=== PATIENT | female | born 1940 | race African-American/Black ===

== ENCOUNTER → 2016-07-08 | Outpatient (CLI) | payer MEDICARE, OTHER ==
[2016-07-08 11:55] LABS: HEMATOCRIT 40.7 % (36.0-47.0); HEMOGLOBIN 13.6 g/dL (12.0-15.5); HGB HCT DIFFERENCE 0.1; MEAN CORPUSCULAR HEMOGLOBIN 29.8 pg (27.0-33.4); MEAN CORPUSCULAR HGB CONC 33.4 g/dL (32.0-36.0); MEAN CORPUSCULAR VOLUME 89 fl (80-97); RED BLOOD COUNT 4.55 10^6/uL (3.72-5.28); RED CELL DISTRIBUTION WIDTH 13.5 % (11.5-14.0)
[2016-07-08 12:22] LABS: ALANINE AMINOTRANSFERASE 24 U/L (9-52); ALBUMIN 4.1 g/dL (3.5-5.0); ALKALINE PHOSPHATASE 74 U/L (38-126); ANION GAP 12 (5-19); ASPARTATE AMINO TRANSFERASE 20 U/L (14-36); BILIRUBIN,DIRECT 0.3 mg/dL (0.0-0.4); BILIRUBIN,TOTAL 0.6 mg/dL (0.2-1.3); BLOOD UREA NITROGEN 8 mg/dL (7-20); CALCIUM 9.4 mg/dL (8.4-10.2); CARBON DIOXIDE 34 mmol/L (22-30); CHLORIDE 97 mmol/L (98-107); CREATININE RESULT 0.55 mg/dL (0.52-1.25); GLUCOSE 165 mg/dL (75-110); POTASSIUM 3.3 mmol/L (3.6-5.0)
== END ==
LOC: OD 10:38
PROVIDERS: ATTEND Surgery
DX: K63.5 Polyp of colon (principal)
CPT/HCPCS: 36415; 80053; 85027

== ENCOUNTER → 2016-07-16 | Outpatient (CLI) | payer MEDICARE, OTHER | LOC: RAD 12:36 | PROVIDERS: ATTEND Surgery | DX: K63.5 Polyp of colon (principal) | CPT/HCPCS: 71260; 74177 ==

== ENCOUNTER → 2016-12-03 | Outpatient (CLI) | payer MEDICARE, OTHER ==
[2016-12-03 15:55] LABS: ANION GAP 13 (5-19); BLOOD UREA NITROGEN 24 mg/dL (7-20); CALCIUM 10.3 mg/dL (8.4-10.2); CARBON DIOXIDE 29 mmol/L (22-30); CHLORIDE 100 mmol/L (98-107); CREATININE RESULT 0.91 mg/dL (0.52-1.25); GLUCOSE 121 mg/dL (75-110); POTASSIUM 5.2 mmol/L (3.6-5.0); SODIUM 142.2 mmol/L (137-145)
== END ==
LOC: OD 14:15
PROVIDERS: ATTEND Internal Medicine
DX: R94.31 Abnormal electrocardiogram [ECG] [EKG] (principal); R06.02 Shortness of breath; J45.909 Unspecified asthma, uncomplicated; R09.02 Hypoxemia; I27.2 Other secondary pulmonary hypertension; R60.0 Localized edema; Z79.899 Other long term (current) drug therapy
CPT/HCPCS: 36415; 80048

== ENCOUNTER → 2016-12-17 | Outpatient (CLI) | payer MEDICARE, OTHER ==
[2016-12-17 11:06] LABS: ABSOLUTE EOSINOPHILS # (AUTO) 0.3 10^3/uL (0.0-0.6); ABSOLUTE LYMPHOCYTES (AUTO) 1.5 10^3/uL (0.5-4.7); ABSOLUTE MONOCYTES (AUTO) 0.5 10^3/uL (0.1-1.4); ABSOLUTE NEUT (AUTO) 2.3 10^3/uL (1.7-8.2); EOSINOPHILS % (AUTO) 6.8 % (0-6); HEMATOCRIT 38.7 % (36.0-47.0); HEMOGLOBIN 13.2 g/dL (12.0-15.5); HGB HCT DIFFERENCE 0.9; MEAN CORPUSCULAR HEMOGLOBIN 29.5 pg (27.0-33.4); MEAN CORPUSCULAR HGB CONC 34.1 g/dL (32.0-36.0); MEAN CORPUSCULAR VOLUME 87 fl (80-97); MONOCYTES % (AUTO) 10.3 % (3-13); RED BLOOD COUNT 4.47 10^6/uL (3.72-5.28); RED CELL DISTRIBUTION WIDTH 13.9 % (11.5-14.0); SEGMENTED NEUTROPHILS % (AUTO) 49.9 % (42-78); WHITE BLOOD COUNT 4.6 10^3/uL (4.0-10.5)
[2016-12-17 11:30] LABS: ALANINE AMINOTRANSFERASE 23 U/L (9-52); ALBUMIN 4.1 g/dL (3.5-5.0); ALKALINE PHOSPHATASE 74 U/L (38-126); ANION GAP 10 (5-19); ASPARTATE AMINO TRANSFERASE 24 U/L (14-36); BILIRUBIN,DIRECT 0.4 mg/dL (0.0-0.4); BILIRUBIN,TOTAL 0.4 mg/dL (0.2-1.3); BLOOD UREA NITROGEN 13 mg/dL (7-20); CARBON DIOXIDE 33 mmol/L (22-30); CHLORIDE 98 mmol/L (98-107); CREATININE RESULT 0.63 mg/dL (0.52-1.25); GLUCOSE 184 mg/dL (75-110); POTASSIUM 4.1 mmol/L (3.6-5.0); SODIUM 141.1 mmol/L (137-145); TOTAL PROTEIN 7.1 g/dL (6.3-8.2)
== END ==
LOC: OD 10:33
PROVIDERS: ATTEND Surgery
DX: E11.9 Type 2 diabetes mellitus without complications (principal); K63.5 Polyp of colon
CPT/HCPCS: 36415; 80053; 83036; 85025

== ENCOUNTER → 2017-04-03 | Outpatient (CLI) | payer MEDICARE, OTHER ==
--- NOTE | 2017-04-03 14:57 | RADIOLOGY REPORT (SQ) ---
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 NUMBER OF VIEWS: Two views. TECHNIQUE: AP pelvis and additional frog-leg view of the right hip. LIMITATIONS: None. FINDINGS: MINERALIZATION: Normal. RIGHT HIP: No fracture or dislocation. No worrisome bone lesions. LEFT HIP: No fracture or dislocation. No worrisome bone lesions. PUBIS AND ISCHIUM: No fracture. PELVIS: No fracture. SACRUM: No fracture or dislocation. No worrisome bone lesions. LOWER LUMBAR SPINE: No fracture or dislocation. No worrisome bone lesions. No significant disc disea se. SOFT TISSUES: No findings. OTHER: No other significant finding. IMPRESSION: NEGATIVE STUDY OF THE RIGHT HIP. NO RADIOGRAPHIC EVIDENCE OF ACUTE INJURY. TECHNICAL DOCUMENTATION: JOB ID: [id number] [employer]- All Rights Reserved
--- NOTE | 2017-04-03 14:59 | RADIOLOGY REPORT (SQ) ---
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 NUMBER OF VIEWS: Five views including obliques. TECHNIQUE: AP, lateral, oblique, and sacral radiographic images acquired of the lumbar spine. LIMITATIONS: None. FINDINGS: MINERALIZATION: Osteopenia. SEGMENTATION: Normal. No transitional anatomy. ALIGNMENT: Mild scoliosis. VERTEBRAE: Maintained height. No fracture or worrisome bone lesion. DISCS: Mild disc narrowing at L4-5. Marginal osteophytes. POSTERIOR ELEMENTS: Hypertrophic facet changes L3-S1. HARDWARE: None in the spine. PARASPINAL SOFT TISSUES: Normal. PELVIS: Intact as visualized. No fractures or worrisome bone lesions. SI joints intact. OTHER: No other significant finding. IMPRESSION: Mild degenerative disc changes. Spondylosis. Facet arthropathy. TECHNICAL DOCUMENTATION: JOB ID: [id number] [employer]- All Rights Reserved
== END ==
LOC: RAD 13:40
PROVIDERS: ATTEND Physician Assistant
DX: M54.31 Sciatica, right side (principal); M47.896 Other spondylosis, lumbar region
CPT/HCPCS: 72110

== ENCOUNTER → 2017-05-12 | Outpatient (CLI) | payer MEDICARE, OTHER ==
--- NOTE | 2017-05-12 14:08 | WOMENS IMAGING REPORT ---
EXAM DESCRIPTION: BONE DENSITY HIP/SPINE COMPLETED DATE/TIME: 05/12/2017 1:31 pm REASON FOR STUDY: SCREENING MAMMO/ OSTEOPOROSIS Z12.31 ENCNTR SCREEN MAMMOGRAM FOR MALIGNANT NEOPLA SM OF LORE M81.0 AGE-RELATED OSTEOPOROSIS W/O CURRENT PATHOLOGICAL FRAC COMPARISON: 10/30/2010 TECHNIQUE: Dual-Energy X-ray Absorptiometry (DEXA) of the AP Spine and Hip. LIMITATIONS: None. FINDINGS: LUMBAR SPINE: The bone mineral density (BMD) measured from L1-L4 in the AP projection correlates with a T-score of 1.5, which is normal as defined by the World Health Organization. HIP: The bone mineral density (BMD) measured in the right hip correlates with a T-score of 0.1, which is n ormal as defined by the World Health Organization. IMPRESSION: 1. LUMBAR SPINE: NORMAL. 2. HIP: NORMAL. COMMENT: The World Health Organization defines low BMD as follows: T-score: Normal: Greater than -1.0 Osteopenia: Between -1.0 and -2.5 Osteoporosis: Less than -2.5 without fractures Established osteoporosis: Less than -2.5 with fractures In general, you may wish to consider: Diagnosis Treatment Follow-up DEXA Normal BMD Prevention 2-3 years Osteopenia Prevention/Therapy 1-2 years Osteoporosis Therapy Yearly TECHNICAL DOCUMENTATION: JOB ID: [id number]- All Rights Reserved
--- NOTE | 2017-05-12 14:22 | WOMENS IMAGING REPORT ---
EXAM DESCRIPTION: 3D SCREENING MAMMO BILAT COMPLETED DATE/TIME: 05/12/2017 1:31 pm REASON FOR STUDY: SCREENING MAMMO/ OSTEOPOROSIS Z12.31 ENCNTR SCREEN MAMMOGRAM FOR MALIGNANT NEOPLA SM OF LORE M81.0 AGE-RELATED OSTEOPOROSIS W/O CURRENT PATHOLOGICAL FRAC COMPARISON: 2010, 2013 TECHNIQUE: Standard craniocaudal and mediolateral oblique views of each breast recorded using digita l acquisition and breast tomosynthesis. LIMITATIONS: None. FINDINGS: Findings present which are benign by mammographic criteria. No suspicious masses, calcifi cations or architectural distortion. Pertinent benign findings: Asymmetry right breast. Read with the assistance of CAD. .[facility] - R2 Cenova Version 1.3 .[facility] - R2 Cenova Version 1.3 .[facility] - R2 Cenova Version 2.4 .[facility] [place]2 Cenova Version 2.4 .[facility] - R2 Ct Manager Version 9.2 Benign mammographic findings may include one or more of the following: Smooth masses, popcorn/rim/co arse calcifications, asymmetries, post-procedure changes, and lesions with long-standing stability. IMPRESSION: BENIGN MAMMOGRAPHIC FINDINGS. BIRADS 2 BREAST DENSITY: a. The breasts are almost entirely fatty. BIRAD: 2 BENIGN FINDING(S) RECOMMENDATION: RECOMMENDATION: ROUTINE SCREENING COMMENT: The patient has been notified of the results by letter per SA requirements. Additional no tification policies are in place for contacting patient with suspicious or incomplete findings. Quality ID #[id number]: The [employer] recommends an annual screening mammogram for women aged 40 years or over. This facility utilizes a reminder system to ensure that all patients receive reminder letters, and/or direct phone calls for appointments. This includes reminders for routine scr eening mammograms, diagnostic mammograms, or other Breast Imaging Interventions when appropriate. Th is patient will be placed in the appropriate reminder system. The [employer] (ACR) has developed recommendations for screening MRI of the breast s in certain patient populations, to be used in conjunction with mammography. Breast MRI surveillanc e may be appropriate for women with more than 20% lifetime risk of developing breast cancer as deter mined by genetic testing, significant family history of the disease, or history of mantle radiation f or Hodgkins Disease. ACR Practice Guidelines 2008. DBT Technology DBT is a type of tomographic mammography. With conventional mammography, overlapping breast tissue ma y make lesions difficult to detect, even with good compression. DBT uses an x-ray tube that rotates a round the breast, taking images at different angles. These images are then combined to create thin sl ices of the breast that the radiologist can view as a 3D reconstruction. The [employer] [facility] [employer] [facility] can perform full-field digital mammograms (2D imaging); or DBT (3D imaging); or both, in a combination mode that quickly performs both the mammogram and the tomosynthesis scan while the breast is still compressed. PQRS 6045F: Fluoroscopic imaging is not utilized for breast tomosynthesis. TECHNICAL DOCUMENTATION: FINDING NUMBER: (1) ASSESSMENT: (1) JOB ID: [id number] [employer]- All Rights Reserved
== END ==
LOC: WI 12:55
PROVIDERS: ATTEND Internal Medicine
DX: Z12.31 Encounter for screening mammogram for malignant neoplasm of breast (principal); M81.0 Age-related osteoporosis without current pathological fracture
CPT/HCPCS: 77063; 77067; 77080

== ENCOUNTER 2017-05-25 09:54 | Emergency (ER) | payer MEDICARE, OTHER ==
[2017-05-25 10:05] VITALS: BP 181/90
[2017-05-25] MEDS ORDERED: FAMOTIDINE 20 MG TABLET PO ONE (10:26)
[2017-05-25] MEDS ORDERED: DIPHENHYDRAMINE HCL 50 MG CAPSULE PO ONE (10:26)
--- NOTE | 2017-05-25 10:33 | ER Document Report ---
ED General - General Chief Complaint: Itching Stated Complaint: ITCH ALL OVER Time Seen by Provider: 05/25/17 10:14 Mode of Arrival: Ambulatory Information source: Patient Notes: 76-year-old female presents with complaints of generalized itching all throughout her body. Patient is a diabetic denies any liver issues presents with complaints of generalized rash that she did not know what to take for. Patient denies any fevers or chills denies any difficulty breathing patient cannot think of any specific cause of the rash Patient notes she took a shower yesterday and the rash improved but she is still itching intermittently TRAVEL OUTSIDE OF THE [place] IN LAST 30 DAYS: No - HPI Onset: Other - 3 days Onset/Duration: Better Quality of pain: No pain Severity: Mild Pain Level: Denies Associated symptoms: Other Exacerbated by: Denies Relieved by: Denies Similar symptoms previously: No Recently seen / treated by doctor: No - Related Data Allergies/Adverse Reactions: No Known Allergies Allergy (Verified 09/08/15 13:24) Past Medical History - Social History Smoking Status: Never Smoker Cigarette use (# per day): No Chew tobacco use (# tins/day): No Smoking Education Provided: No Family History: Reviewed & Not Pertinent - Past Medical History Cardiac Medical History: Reports: Hx Hypertension - CONTROLLED Denies: Hx Heart Attack Pulmonary Medical History: Reports: Hx Asthma Neurological Medical History: Denies: Hx Cerebrovascular Accident, Hx Seizures GI Medical History: Reports: Hx Ulcer - HX OF. Denies: Hx Hepatitis, Hx Hiatal Hernia Infectious Medical History: Denies: Hx Hepatitis Past Surgical History: Reports: Hx Hysterectomy, Hx Tubal Ligation. Denies: Hx Mastectomy, Hx Open Heart Surgery, Hx Pacemaker - Immunizations Hx Diphtheria, Pertussis, Tetanus Vaccination: Yes Review of Systems - Review of Systems Notes: REVIEW OF SYSTEMS: CONSTITUTIONAL : Denies fever, chills, or sweats. Denies recent illness. EENT: Denies eye, ear, throat, or mouth pain or symptoms. Denies nasal or sinus congestion or discharge. Denies throat, tongue, or mouth swelling or difficulty swallowing. CARDIOVASCULAR: Denies chest pain. Denies palpitations or racing or irregular heart beat. Denies ankle edema. RESPIRATORY: Denies cough, cold, or chest congestion. Denies shortness of breath, difficulty breathing, or wheezing. GASTROINTESTINAL: Denies abdominal pain or distention. Denies nausea, vomiting , or diarrhea. Denies blood in vomitus, stools, or per rectum. Denies black, tarry stools. Denies constipation. GENITOURINARY: Denies difficulty urinating, painful urination, burning, frequency, blood in urine, or discharge. FEMALE GENITOURINARY: Denies vaginal bleeding, heavy or abnormal periods, irregular periods. Denies vaginal discharge or odor. MUSCULOSKELETAL: Denies back or neck pain or stiffness. Denies joint pain or swelling. SKIN: generalized rash HEMATOLOGIC : Denies easy bruising or bleeding. LYMPHATIC: Denies swollen, enlarged glands. NEUROLOGICAL: Denies confusion or altered mental status. Denies passing out or loss of consciousness. Denies dizziness or lightheadedness. Denies headache. Denies weakness or paralysis or loss of use of either side. Denies problems with gait or speech. Denies sensory loss, numbness, or tingling. Denies seizures. PSYCHIATRIC: Denies anxiety or stress. Denies depression, suicidal ideation, or homicidal ideation. ALL OTHER SYSTEMS REVIEWED AND NEGATIVE. PHYSICAL EXAMINATION: GENERAL: Well-appearing, well-nourished and in no acute distress. HEAD: Atraumatic, normocephalic. EYES: Pupils equal round and reactive to light, extraocular movements intact, conjunctiva are normal. ENT: Nares patent, oropharynx clear without exudates. Moist mucous membranes. NECK: Normal range of motion, supple without lymphadenopathy LUNGS: Breath sounds clear to auscultation bilaterally and equal. No wheezes rales or rhonchi. HEART: Regular rate and rhythm without murmurs ABDOMEN: Soft, nontender, nondistended abdomen. No guarding, no rebound. No masses appreciated. Female : deferred Musculoskeletal: Normal range of motion, no pitting or edema. No cyanosis. NEUROLOGICAL: Cranial nerves grossly intact. Normal speech, normal gait. Normal sensory, motor exams PSYCH: Normal mood, normal affect. SKIN: Warm, Dry, normal turgor, no rashes or lesions noted. Dictation was performed using [employer] recognition software Physical Exam - Vital signs Vitals: Temp Pulse Resp BP Pulse Ox 98.0 F 98 18 181/90 H 92 05/25/17 10:03 05/25/17 10:03 05/25/17 10:03 05/25/17 10:03 05/25/17 10:03 Course - Re-evaluation Re-evalutation: 05/25/17 10:44 Patient will be placed on Benadryl and Pepcid, she has a history of diabetes and will not use steroids at this time After performing a Medical Screening Examination, I estimate there is LOW risk for AIRWAY COMPROMISE, ANAPHYLAXIS, CELLULITIS, EPIGLOTTIS, or NECROTIZING FASCIITIS, thus I consider the discharge disposition reasonable. Also, there is no evidence or peritonitis, sepsis, or toxicity. I have reevaluated this patient multiple times and no significant life threatening changes are noted. The patient and I have discussed the diagnosis and risks, and we agree with discharging home with close follow-up with the understanding that symptoms and presentations can change. We also discussed returning to the Emergency Department immediately if new or worsening symptoms occur. We have discussed the symptoms which are most concerning (e.g., difficulty breathing or swallowing , fever, changing or worsening pain) that necessitate immediate return. - Vital Signs Vital signs: Temp Pulse Resp BP Pulse Ox 98.0 F 98 18 181/90 H 92 05/25/17 10:03 05/25/17 10:03 05/25/17 10:03 05/25/17 10:03 05/25/17 10:03 Discharge - Discharge Clinical Impression: Allergic reaction Qualifiers: Encounter type: initial encounter Qualified Code(s): T78.40XA - Allergy, unspecified, initial encounter HTN (hypertension) Qualifiers: Hypertension type: essential hypertension Qualified Code(s): I10 - Essential ( primary) hypertension Condition: Stable Disposition: HOME, SELF-CARE Instructions: Acute Allergic Reaction ([facility]) Additional Instructions: Follow up with your physician tomorrow for further care or return to the ED IMMEDIATELY if symptoms worsen or new concerns occur. If you cannot afford to follow up with your primary care physician a list of low cost clinics have been provided at the end of your discharge papers as well. Prescriptions: Diphenhydramine HCl [Benadryl 50 mg Capsule] 1 cap PO Q6 PRN #20 capsule PRN Reason: Famotidine [Pepcid 20 mg Tablet] 20 mg PO DAILY #5 tablet
== END 2017-05-25 10:53 | disposition home or self-care (01) ==
LOC: ER 09:54
DX: T78.40XA Allergy, unspecified, initial encounter (principal); L29.9 Pruritus, unspecified; X58.XXXA Exposure to other specified factors, initial encounter; E11.9 Type 2 diabetes mellitus without complications; I10 Essential (primary) hypertension; J45.909 Unspecified asthma, uncomplicated
CPT/HCPCS: 99282; A9270 ×2

== ENCOUNTER 2017-08-12 13:19 | Emergency (ER) | payer MEDICARE, OTHER ==
--- NOTE | 2017-08-12 13:53 | ER Document Report ---
HPI - HPI Patient complains to provider of: left great toe pain Onset: Other - 3 days Quality of pain: Throbbing Pain Level: 1 Context: 76 yo female with left great toe pain for 3 days, then started getting red and swollen. Diabetic 2. No hx gout. PCP: Dr. Arzate gave her a cream to use on it and she thinks it is better today than yesterday. Associated Symptoms: None Exacerbated by: Movement Relieved by: Other - cream is helping Similar symptoms previously: No Recently seen / treated by doctor: Nae ARZATE below otherwise negative: Yes Systems Reviewed and Negative: Yes All other systems reviewed and negative - REPRODUCTIVE Reproductive: DENIES: : Past Medical History - General Information source: Patient - Social History Smoking Status: Former Smoker Frequency of alcohol use: None Drug Abuse: None Lives with: Family Family History: Reviewed & Not Pertinent - Past Medical History Cardiac Medical History: Reports: Hx Hypertension - CONTROLLED Pulmonary Medical History: Reports: Hx Asthma Renal/ Medical History: Denies: Hx Peritoneal Dialysis GI Medical History: Reports: Hx Ulcer - HX OF Infectious Medical History: Denies: Hx Hepatitis Past Surgical History: Reports: Hx Hysterectomy, Hx Tubal Ligation. Denies: Hx Mastectomy, Hx Open Heart Surgery, Hx Pacemaker - Immunizations Hx Diphtheria, Pertussis, Tetanus Vaccination: Yes Vertical Provider Document - CONSTITUTIONAL Agree With Documented VS: Yes Exam Limitations: No Limitations General Appearance: No Apparent Distress - INFECTION CONTROL TRAVEL OUTSIDE OF THE [place] IN LAST 30 DAYS: No - HEENT HEENT: Normocephalic - NECK Neck: Supple - MUSCULOSKELETAL/EXTREMETIES Musculoskeletal/Extremeties: MAEW Notes: erythematous dorsal mid left great toe over the DIP, increased pain with DIP movement. N/V intact. moist non tender skin between gt and 2nd toe. Inflamed but no paronychia or abscess. Course - Re-evaluation Re-evalutation: 08/12/17 15:12 uric acid is negative, will tx for possible skin infection and inflammation ( possible gout) with keflex and steroid, rec followo up with dr arzate. also advise to continue the cream. 08/12/17 15:13 - Vital Signs Vital signs: Temp Pulse Resp BP Pulse Ox 98.3 F 88 15 180/96 H 91 L 08/12/17 13:24 08/12/17 13:24 08/12/17 13:24 08/12/17 13:24 08/12/17 13:24 Discharge - Discharge Clinical Impression: left great toe inflammation Cellulitis Qualifiers: Site of cellulitis: extremity Site of cellulitis of extremity: toe Laterality: left Qualified Code(s): L03.032 - Cellulitis of left toe Condition: Good Disposition: HOME, SELF-CARE Instructions: Cephalexin ([facility]), Steroid Medication, Cellulitis ([facility]), Gout ([facility] ), Gout Diet ([facility]) Additional Instructions: see dr arzate for follow up on steroids to reduce the inflammation antibiotic for possible skin infection continue the cream that you are using. to er any concerns Prescriptions: Cephalexin Monohydrate [Keflex 500 mg Capsule] 500 mg PO QID #28 capsule Prednisone [Deltasone 10 mg Tablet] 10 mg PO ASDIR PRN #21 tablet PRN Reason: Referrals: ETTA ARZATE MD [Primary Care Provider] - Follow up as needed
--- NOTE | 2017-08-12 14:56 | RADIOLOGY REPORT (SQ) ---
EXAM DESCRIPTION: TOE LEFT COMPLETED DATE/TIME: 08/12/2017 2:19 pm REASON FOR STUDY: pain , swelling, red COMPARISON: None. NUMBER OF VIEWS: Three views. TECHNIQUE: AP, lateral, and oblique images acquired of the left first toe. LIMITATIONS: None. FINDINGS: MINERALIZATION: Normal. BONES: No acute fracture or dislocation. No worrisome bone lesions. JOINTS: No effusions. SOFT TISSUES: No soft tissue swelling. No foreign body. OTHER: No other significant finding. IMPRESSION: NEGATIVE STUDY OF THE LEFT TOE. NO RADIOGRAPHIC EVIDENCE OF ACUTE INJURY. COMMENT: SITE OF TRAUMA/COMPLAINT MARKED/STAMP COMPLETED: No TECHNICAL DOCUMENTATION: JOB ID: [id number] [employer]- All Rights Reserved Reading location - IP/workstation name: [email or web address]
[2017-08-12 15:09] VITALS: BP 183/89
== END 2017-08-12 15:18 | disposition home or self-care (01) ==
LOC: ER 13:19
DX: L03.032 Cellulitis of left toe (principal); M79.675 Pain in left toe(s); E11.9 Type 2 diabetes mellitus without complications; I10 Essential (primary) hypertension; J45.909 Unspecified asthma, uncomplicated; Z87.891 Personal history of nicotine dependence
CPT/HCPCS: 36415; 84550; 99283

== ENCOUNTER 2017-08-21 11:04 | Emergency (ER) | payer MEDICARE, OTHER ==
--- NOTE | 2017-08-21 11:27 | ER Document Report ---
ED Medical Screen (RME) - General Chief Complaint: General Weakness Stated Complaint: DIZZY, WEAK Time Seen by Provider: 08/21/17 11:20 Notes: Patient is a 76-year-old female, past medical history hypertension, NIDDM, hypercholesterolemia, presents with 2 days of feeling off balance, especially when she is walking. Never had this before. Only takes her medications intermittently because "I don't always believe in medications." Denies focal weakness, numbness, tingling or blurry vision. PE: 5/5 strength in all 4 extremities. Sensation intact. I have greeted and performed a rapid initial assessment of this patient. A comprehensive ED assessment and evaluation of the patient, analysis of test results and completion of the medical decision making process will be conducted by additional ED providers. TRAVEL OUTSIDE OF THE [place] IN LAST 30 DAYS: No - Related Data Allergies/Adverse Reactions: No Known Allergies Allergy (Verified 08/12/17 13:19) Past Medical History - Social History Chew tobacco use (# tins/day): No Frequency of alcohol use: Rare Drug Abuse: None - Past Medical History Cardiac Medical History: Reports: Hx Hypertension - CONTROLLED Pulmonary Medical History: Reports: Hx Asthma Renal/ Medical History: Denies: Hx Peritoneal Dialysis GI Medical History: Reports: Hx Ulcer - HX OF. Denies: Hx Hepatitis Infectious Medical History: Denies: Hx Hepatitis Past Surgical History: Reports: Hx Hysterectomy, Hx Tubal Ligation. Denies: Hx Mastectomy, Hx Open Heart Surgery, Hx Pacemaker - Immunizations Hx Diphtheria, Pertussis, Tetanus Vaccination: Yes Physical Exam - Vital signs Vitals: Temp Pulse Resp BP Pulse Ox 97.7 F 85 20 170/81 H 94 08/21/17 11:10 08/21/17 11:10 08/21/17 11:10 08/21/17 11:10 08/21/17 11:10 Course - Vital Signs Vital signs: Temp Pulse Resp BP Pulse Ox 97.7 F 85 20 170/81 H 94 08/21/17 11:10 08/21/17 11:10 08/21/17 11:10 08/21/17 11:10 08/21/17 11:10 Doctor's Discharge - Discharge Referrals: ETTA ARZATE MD [Primary Care Provider] - Follow up as needed
[2017-08-21 12:22] LABS: ABSOLUTE EOSINOPHILS # (AUTO) 0.1 10^3/uL (0.0-0.6); ABSOLUTE LYMPHOCYTES (AUTO) 1.6 10^3/uL (0.5-4.7); ABSOLUTE MONOCYTES (AUTO) 0.4 10^3/uL (0.1-1.4); ABSOLUTE NEUT (AUTO) 3.1 10^3/uL (1.7-8.2); BASOPHILS % (AUTO) 0.8 % (0-2); EOSINOPHILS % (AUTO) 2.2 % (0-6); HEMATOCRIT 43.3 % (36.0-47.0); HEMOGLOBIN 14.5 g/dL (12.0-15.5); MEAN CORPUSCULAR HEMOGLOBIN 29.2 pg (27.0-33.4); MEAN CORPUSCULAR HGB CONC 33.4 g/dL (32.0-36.0); MEAN CORPUSCULAR VOLUME 87 fl (80-97); MONOCYTES % (AUTO) 7.5 % (3-13); PLATELET COUNT 204 10^3/uL (150-450); RED BLOOD COUNT 4.96 10^6/uL (3.72-5.28); RED CELL DISTRIBUTION WIDTH 13.9 % (11.5-14.0); SEGMENTED NEUTROPHILS % (AUTO) 59.5 % (42-78); TOTAL CELLS COUNTED % (AUTO) 100 %; WHITE BLOOD COUNT 5.2 10^3/uL (4.0-10.5)
[2017-08-21 12:27] LABS: PROTHROMBIN TIME 12.6 SEC (11.4-15.4)
--- NOTE | 2017-08-21 12:32 | RADIOLOGY REPORT (SQ) ---
EXAM DESCRIPTION: CHEST SINGLE VIEW COMPLETED DATE/TIME: 08/21/2017 12:23 pm REASON FOR STUDY: new onset ataxia, off-balance COMPARISON: None. NUMBER OF VIEWS: One view. TECHNIQUE: Single frontal radiographic view of the chest acquired. LIMITATIONS: None. FINDINGS: LUNGS AND PLEURA: Trace of fluid in the right major fissure. No significant effusion. No evidence of pneumonia. MEDIASTINUM AND HILAR STRUCTURES: No masses. Contour normal. HEART AND VASCULAR STRUCTURES: Heart normal in size. Normal vasculature. BONES: No acute findings. HARDWARE: None in the chest. OTHER: No other significant finding. IMPRESSION: NO SIGNIFICANT RADIOGRAPHIC FINDING IN THE CHEST. TECHNICAL DOCUMENTATION: JOB ID: [id number] [employer]- All Rights Reserved Reading location - IP/workstation name: [email or web address]
--- NOTE | 2017-08-21 12:38 | RADIOLOGY REPORT (SQ) ---
EXAM DESCRIPTION: CT HEAD WITHOUT COMPLETED DATE/TIME: 08/21/2017 12:21 pm REASON FOR STUDY: new onset ataxia, off-balance COMPARISON: August 2015 TECHNIQUE: Axial images acquired through the brain without intravenous contrast. Images reviewed wi th bone, brain and subdural windows. Additional sagittal and coronal reconstructions were generated. Images stored on PACS. All CT scanners at this facility use dose modulation, iterative reconstruction, and/or weight based d osing when appropriate to reduce radiation dose to as low as reasonably achievable (ALARA). [facility]: Dose Right [facility]: CareDose [facility]: Dose Right [facility]: Teradose 4D [facility]: Smart [employer] RADIATION DOSE: CT Rad equipment meets quality standard of care and radiation dose reduction techniq ues were employed. CTDIvol: 53.2 mGy. DLP: 1044 mGy-cm. mGy. LIMITATIONS: None. FINDINGS: VENTRICLES: Prominent. CEREBRUM: No masses. No hemorrhage. No midline shift. Areas of low density in the white matter mos t likely due to chronic micro-vascular ischemic change. No evidence for acute infarction. CEREBELLUM: No masses. No hemorrhage. No alteration of density. No evidence for acute infarction. EXTRAAXIAL SPACES: Mild age-related involutional change. No fluid collections. No masses. ORBITS AND GLOBE: No intra- or extraconal masses. Normal contour of globe without masses. CALVARIUM: No fracture. PARANASAL SINUSES: No fluid or mucosal thickening. SOFT TISSUES: No mass or hematoma. OTHER: No other significant finding. IMPRESSION: MILD CHRONIC CHANGES OF ATROPHY AND MICROVASCULAR ISCHEMIA. NO ACUTE PROCESS. EVIDENCE OF ACUTE STROKE: No TECHNICAL DOCUMENTATION: JOB ID: [id number] Quality ID # [id number]: Final reports with documentation of one or more dose reduction techniques (e.g., Au tomated exposure control, adjustment of the mA and/or kV according to patient size, use of iterative reconstruction technique) 2010 [employer]- All Rights Reserved Reading location - IP/workstation name: [email or web address]
[2017-08-21 12:46] LABS: ALANINE AMINOTRANSFERASE 23 U/L (9-52); ALBUMIN 4.1 g/dL (3.5-5.0); ALKALINE PHOSPHATASE 79 U/L (38-126); ASPARTATE AMINO TRANSFERASE 21 U/L (14-36); BILIRUBIN,DIRECT 0.3 mg/dL (0.0-0.4); BILIRUBIN,TOTAL 0.6 mg/dL (0.2-1.3); BLOOD UREA NITROGEN 9 mg/dL (7-20); CREATINE KINASE 59 U/L (30-135); GLUCOSE 274 mg/dL (75-110); TOTAL PROTEIN 7.3 g/dL (6.3-8.2)
[2017-08-21] MEDS ORDERED: MECLIZINE HCL 25 MG TABLET PO ONE (12:49)
[2017-08-21 13:09] LABS: ANION GAP 13 (5-19); CARBON DIOXIDE 38 mmol/L (22-30); CHLORIDE 92 mmol/L (98-107); SODIUM 143.3 mmol/L (137-145)
[2017-08-21 13:16] LABS: POTASSIUM 2.8 mmol/L (3.6-5.0)
[2017-08-21] MEDS ORDERED: POTASSIUM CHLORIDE 10 MEQ TABLET.SA PO ONE (13:21)
--- NOTE | 2017-08-21 13:24 | EKG REPORT ---
SEVERITY:- ABNORMAL ECG - SINUS RHYTHM RBBB AND LAFB PROBABLE LEFT VENTRICULAR HYPERTROPHY : Confirmed by: Adan Damon MD 21-Aug-2017 13:23:26
[2017-08-21] MEDS ORDERED: POTASSI CL 20 MEQ/50 ML RIDER 20 MEQ/50 ML RTUPB IV SCH (13:30)
--- NOTE | 2017-08-21 13:30 | ER Document Report ---
ED General - General Chief Complaint: General Weakness Stated Complaint: DIZZY, WEAK Time Seen by Provider: 08/21/17 11:20 Mode of Arrival: Ambulatory Information source: Patient Notes: 76-year-old female presents with complaints of dizziness sensation worsening with movement of her head. Patient notes she has similar episodes in February was treated for vertigo at that time. Patient notes that when she moves her head her eyes flutter to the right TRAVEL OUTSIDE OF THE [place] IN LAST 30 DAYS: No - HPI Onset: Other - 2- 3 days Onset/Duration: Sudden, Worse Quality of pain: No pain Severity: Mild Pain Level: Denies Associated symptoms: Weakness, Other Exacerbated by: Movement Relieved by: Denies Similar symptoms previously: Yes Recently seen / treated by doctor: Yes - Related Data Allergies/Adverse Reactions: No Known Allergies Allergy (Verified 08/12/17 13:19) Past Medical History - Social History Smoking Status: Former Smoker Cigarette use (# per day): No Chew tobacco use (# tins/day): No Smoking Education Provided: No Frequency of alcohol use: Rare Drug Abuse: None Family History: Reviewed & Not Pertinent Patient has suicidal ideation: No Patient has homicidal ideation: No - Past Medical History Cardiac Medical History: Reports: Hx Hypertension - CONTROLLED Pulmonary Medical History: Reports: Hx Asthma Renal/ Medical History: Denies: Hx Peritoneal Dialysis GI Medical History: Reports: Hx Ulcer - HX OF. Denies: Hx Hepatitis Infectious Medical History: Denies: Hx Hepatitis Past Surgical History: Reports: Hx Hysterectomy, Hx Tubal Ligation. Denies: Hx Mastectomy, Hx Open Heart Surgery, Hx Pacemaker - Immunizations Hx Diphtheria, Pertussis, Tetanus Vaccination: Yes Review of Systems - Review of Systems Notes: REVIEW OF SYSTEMS: CONSTITUTIONAL : Denies fever, chills, or sweats. Denies recent illness. EENT: Admits to fluttering of the eyes CARDIOVASCULAR: Denies chest pain. Denies palpitations or racing or irregular heart beat. Denies ankle edema. RESPIRATORY: Denies cough, cold, or chest congestion. Denies shortness of breath, difficulty breathing, or wheezing. GASTROINTESTINAL: Denies abdominal pain or distention. Denies nausea, vomiting , or diarrhea. Denies blood in vomitus, stools, or per rectum. Denies black, tarry stools. Denies constipation. GENITOURINARY: Denies difficulty urinating, painful urination, burning, frequency, blood in urine, or discharge. FEMALE GENITOURINARY: Denies vaginal bleeding, heavy or abnormal periods, irregular periods. Denies vaginal discharge or odor. MUSCULOSKELETAL: Denies back or neck pain or stiffness. Denies joint pain or swelling. SKIN: Denies rash, lesions or sores. HEMATOLOGIC : Denies easy bruising or bleeding. LYMPHATIC: Denies swollen, enlarged glands. NEUROLOGICAL: Admits to dizziness PSYCHIATRIC: Denies anxiety or stress. Denies depression, suicidal ideation, or homicidal ideation. ALL OTHER SYSTEMS REVIEWED AND NEGATIVE. PHYSICAL EXAMINATION: GENERAL: Well-appearing, well-nourished and in no acute distress. HEAD: Atraumatic, normocephalic. EYES: Pupils equal round and reactive to light, extraocular movements intact, conjunctiva are normal. ENT: Nares patent, oropharynx clear without exudates. Moist mucous membranes. NECK: Normal range of motion, supple without lymphadenopathy LUNGS: Breath sounds clear to auscultation bilaterally and equal. No wheezes rales or rhonchi. HEART: Regular rate and rhythm without murmurs ABDOMEN: Soft, nontender, nondistended abdomen. No guarding, no rebound. No masses appreciated. Female : deferred Musculoskeletal: Normal range of motion, no pitting or edema. No cyanosis. NEUROLOGICAL: Cranial nerves grossly intact. Normal speech, normal gait. Normal sensory, motor exams positive [place] to the right PSYCH: Normal mood, normal affect. SKIN: Warm, Dry, normal turgor, no rashes or lesions noted. Dictation was performed using [employer] voice recognition software Physical Exam - Vital signs Vitals: Temp Pulse Resp BP Pulse Ox 97.7 F 85 20 170/81 H 94 08/21/17 11:10 08/21/17 11:10 08/21/17 11:10 08/21/17 11:10 08/21/17 11:10 Course - Re-evaluation Re-evalutation: 08/21/17 13:32 Patient's presentation is most consistent with vertigo, lab work does note hypokalemia, she will be given oral and IV potassium 08/21/17 14:23 pt notes she is on diuretic but does not like taking her potassium Patient otherwise looks well is in no distress will be discharged home to follow -up with primary care physician she has been instructed to recheck her potassium After performing a Medical Screening Examination, I estimate there is LOW risk for INTRACRANIAL HEMORRHAGE, ISCHEMIC CVA, MALIGNANT DYSRHYTHMIA, ACUTE CORONARY SYNDROME, MENINGITIS, PULMONARY EMBOLISM, or SEPSIS thus I consider the discharge disposition reasonable. I have reevaluated this patient multiple times and no significant life threatening changes are noted. The patient and I have discussed the diagnosis and risks, and we agree with discharging home with close follow-up with the understanding that symptoms and presentations can change. We also discussed returning to the Emergency Department immediately if new or worsening symptoms occur. We have discussed the symptoms which are most concerning (e.g., changing or worsening pain, weakness, vomiting, fever) that necessitate immediate return. - Vital Signs Vital signs: Temp Pulse Resp BP Pulse Ox 97.7 F 84 18 170/80 H 98 08/21/17 11:10 08/21/17 12:34 08/21/17 12:34 08/21/17 12:34 08/21/17 12:34 - Laboratory Result Diagrams: 08/21/17 12:05 08/21/17 12:05 Laboratory results interpreted by me: 08/21/17 12:05 Potassium 2.8 L* Chloride 92 L Carbon Dioxide 38 H Glucose 274 H - Diagnostic Test Radiology reviewed: Image reviewed - CT head notes no acute abnormality, Reports reviewed Discharge - Discharge Clinical Impression: Vertigo, Hypokalemia Condition: Stable Disposition: HOME, SELF-CARE Instructions: Hypokalemia ([facility]), Vertigo ([facility]) Additional Instructions: Please recheck your potassium and 2 days or return immediately if there are any other concerns Prescriptions: Meclizine HCl [Antivert 25 mg Tablet] 25 mg PO TID PRN #21 tablet PRN Reason: Meclizine HCl [Antivert 25 mg Tablet] 25 mg PO TID PRN #21 tablet PRN Reason: Referrals: ETTA ARZATE MD [Primary Care Provider] - Follow up tomorrow
[2017-08-21 16:30] VITALS: BP 146/87
== END 2017-08-21 16:30 | disposition home or self-care (01) ==
LOC: ER 11:04
DX: R53.1 Weakness (principal); E87.6 Hypokalemia; R42 Dizziness and giddiness; Z87.891 Personal history of nicotine dependence; Z90.710 Acquired absence of both cervix and uterus
CPT/HCPCS: 93005; 99285; 96365; 36415; 82550; 83735; 85025; 85610; 85730; 80053; 84484; 71045; 70450; 93010; A9270 ×2; J3480

== ENCOUNTER 2018-02-08 14:27 | Emergency (ER) | payer MEDICARE, OTHER ==
[2018-02-08 14:38] VITALS: BP 157/80
[2018-02-08] MEDS ORDERED: DIPH/PERTUSS(ACELL)/TETANUS VAC/PF 0.5 ML SYR (>=10YO) IM ONE (14:57)
[2018-02-08] MEDS ORDERED: IBUPROFEN 600 MG TABLET PO ONE (14:57)
[2018-02-08] MEDS ORDERED: CEPHALEXIN 500 MG CAPSULE PO ONE (15:10)
--- NOTE | 2018-02-08 15:14 | ER Document Report ---
HPI - HPI Pain Level: Denies Notes: Patient is a 77-year-old female who presents after stepping on a nail at her house approximately 1 hour prior to arrival. She states the nail went through her athletic shoe. Patient reports her tetanus is not up to date. - EENT EENT: DENIES: Sore Throat - GASTROINTESTINAL Gastrointestinal: DENIES: Abdominal Pain - REPRODUCTIVE Reproductive: DENIES: : - MUSCULOSKELETAL Musculoskeletal: REPORTS: Extremity pain - right foot <ARMIN IZQUIERDO - Last Filed: 02/08/18 20:39> - ROS Notes: Unless otherwise stated in this report the patient's positive and negative responses for review of systems for constitutional, eyes, ENT, cardiovascular, respiratory, gastrointestinal, neurological, genitourinary, musculoskeletal, and integumentary systems and related systems to the presenting problem are either as stated in the HPI or were not pertinent or were negative for the symptoms and/or complaints related to the presenting medical problem. <GOMEZ GONZALEZ - Last Filed: 02/11/18 10:36> Past Medical History - General Information source: Patient - Social History Smoking Status: Never Smoker Chew tobacco use (# tins/day): No Frequency of alcohol use: Occasional Drug Abuse: None Family History: Reviewed & Not Pertinent Patient has suicidal ideation: No Patient has homicidal ideation: No - Past Medical History Cardiac Medical History: Reports: Hx Hypertension - CONTROLLED Pulmonary Medical History: Reports: Hx Asthma Renal/ Medical History: Denies: Hx Peritoneal Dialysis GI Medical History: Reports: Hx Ulcer - HX OF. Denies: Hx Hepatitis Infectious Medical History: Denies: Hx Hepatitis Past Surgical History: Reports: Hx Hysterectomy, Hx Tubal Ligation. Denies: Hx Mastectomy, Hx Open Heart Surgery, Hx Pacemaker - Immunizations Hx Diphtheria, Pertussis, Tetanus Vaccination: Yes <ARMIN IZQUIERDO - Last Filed: 02/08/18 20:39> Vertical Provider Document - CONSTITUTIONAL Notes: PHYSICAL EXAMINATION: GENERAL: Well-appearing, well-nourished and in no acute distress. HEAD: Atraumatic, normocephalic. EYES: Pupils equal round extraocular movements intact, conjunctiva are normal. ENT: Nares patent NECK: Normal range of motion LUNGS: No respiratory distress Musculoskeletal: Normal range of motion NEUROLOGICAL: Normal speech, normal gait. PSYCH: Normal mood, normal affect. SKIN: Warm, Dry, normal turgor, no rashes or lesions noted, puncture wound noted to dorsal surface of left foot near the third digit . - INFECTION CONTROL TRAVEL OUTSIDE OF THE [place] IN LAST 30 DAYS: No <ARMIN IZQUIERDO - Last Filed: 02/08/18 20:39> Course - Re-evaluation Re-evalutation: Puncture wound cleaned, tetanus updated. Patient placed on Keflex. Patient instructed to have wound rechecked by her primary care provider, return sooner if she develops any of the warning signs as outlined on her discharge instructions. - Vital Signs Vital signs: Temp Pulse Resp BP Pulse Ox 98 F 75 16 157/80 H 93 02/08/18 14:35 02/08/18 14:35 02/08/18 14:35 02/08/18 14:35 02/08/18 14:35 <ARMIN IZQUIERDO - Last Filed: 02/08/18 20:39> - Vital Signs Vital signs: Temp Pulse Resp BP Pulse Ox 98 F 75 16 157/80 H 93 02/08/18 14:35 02/08/18 14:35 02/08/18 14:35 02/08/18 14:35 02/08/18 14:35 <GOMEZ GONZALEZ - Last Filed: 02/11/18 10:36> Discharge <ARMIN IZQUIERDO - Last Filed: 02/08/18 20:39> <GOMEZ GONZALEZ - Last Filed: 02/11/18 10:36> - Discharge Clinical Impression: Penetrating foot wound Qualifiers: Encounter type: initial encounter Laterality: right Qualified Code(s): S91.331A - Puncture wound without foreign body, right foot, initial encounter Condition: Stable Disposition: HOME, SELF-CARE Additional Instructions: Puncture Wound You have a puncture wound. Because these wounds often penetrate deeply beneath the skin, you must observe them carefully for complications. The wound has been examined for retained foreign material and for damage to tendons and nerves. The area should be rested and elevated for 24 hours. Then you can use the injured part -- if moving it is painfree. Punctures of the hand or foot may require splinting or crutches. The dressing should be changed daily until the wound is healed. Watch for signs of infection. Call the doctor immediately if redness, swelling, warmth, increasing pain, or wound drainage occur. If you develop numbness, persistent bleeding, or inability to move the injured area, please return for prompt re-evaluation. Tetanus Immunization Given You have been given an immunization against tetanus. Please record this in your records. In general, a booster is needed only once every 10 years. The tetanus shot protects against tetanus or "lockjaw," which is a complication of certain wound infections (the tetanus shot cannot protect against the actual infection). The immunization site may become warm and red due to local reaction. If this occurs, apply warm compresses and take aspirin or ibuprofen to reduce inflammation and discomfort. Return for evaluation if the reaction becomes severe. Please take antibiotics as prescribed. Please watch closely for signs of infection to include redness, swelling, warmth, increasing pain or drainage from the wound. Please return for a wound evaluation to either your primary care provider or the emergency department if any of the above develops. Prescriptions: Cephalexin [Cephalexin 500 MG Capsule] 1 cap PO QID #28 cap Referrals: ETTA ARZATE MD [Primary Care Provider] - Follow up as needed
== END 2018-02-08 15:31 | disposition home or self-care (01) ==
LOC: ER 14:27
DX: S91.331A Puncture wound without foreign body, right foot, initial encounter (principal); S91.332A Puncture wound without foreign body, left foot, initial encounter; W45.0XXA Nail entering through skin, initial encounter; Y92.009 Unspecified place in unspecified non-institutional (private) residence as the place of occurrence of the external cause; Z23 Encounter for immunization
CPT/HCPCS: 99283; 90471; 90715; A9270 ×2

== ENCOUNTER → 2018-07-15 | Outpatient (CLI) | payer MEDICARE, OTHER ==
--- NOTE | 2018-07-15 23:24 | XCELERA REPORT ---
[address] [address] Transthoracic Echocardiogram Report Name: ELDA CONNER Age: 77 yrs Gender: Female : 1940 Patient Status: Outpatient Patient Location: Study Date: 07/15/2018 01:12 PM Height: 66 in Weight: 223 lb BSA: 2.1 m2 Procedure: A two-dimensional transthoracic echocardiogram with color flow Doppler was performed. The study was technically difficult with many images being suboptimal in quality. Reason For Study: SOB History: Shortness of breath. Ordering Physician: MONI NORRIS Performed By: Kamala Estrada Interpretation Summary There is normal left ventricular wall thickness. The left ventricular ejection fraction is within normal limits. LV EF is > than 65% Doppler measurements suggest impaired left ventricular relaxation, which is associated with grade I/IV or mild diastolic dysfunction The left ventricular wall motion is normal. There is no thrombus. Cannot assess ASD,VSD or PFO. The right ventricle is moderately dilated. The right ventricle is not well visualized secondary to technical limitations There is mild right ventricular hypertrophy. The right atrium is mild to moderately dilated. The left atrial size is normal. There is no evidence of mitral valve prolapse. There is no vegetation seen on the mitral valve. There is no mitral valve stenosis. There is no mitral regurgitation noted. There is no aortic valvular vegetation. There is no aortic valve stenosis There is no LVOT obstruction. No aortic regurgitation is present. There is no tricuspid stenosis. There is a mild amount of tricuspid regurgitation There is mild pulmonary hypertension by echo RVSP is 32 to 37 mm of Hg , with RA mean of 5 to 10. There is no pulmonic valvular stenosis. There is a trace amount of pulmonic regurgitation The aortic root is normal size. The inferior vena cava appeared normal and decreased > 50% with respiration (RAP 5-10 mmHg) There is no pericardial effusion. MMode/2D Measurements & Calculations RVDd: 4.0 cm LVIDd: 4.4 cm FS: 41.5 % Ao root diam: 3.0 cm IVSd: 0.99 cm LVIDs: 2.6 cm EDV(Teich): 88.8 ml Ao root area: 7.1 cm2 LVPWd: 1.2 cm ESV(Teich): 24.3 ml EF(Teich): 72.7 % Doppler Measurements & Calculations MV E max pablito: MV dec slope: Ao V2 max: LV V1 max P.7 cm/sec 311.5 cm/sec2 115.7 cm/sec 3.6 mmHg MV A max pablito: MV dec time: 0.22 sec Ao max P.4 mmHgLV V1 max: 109.0 cm/sec 94.7 cm/sec MV E/A: 0.64 PA V2 max: PI end-d pablito: TR max pablito: 82.4 cm/sec 127.7 cm/sec 260.9 cm/sec PA max P.7 mmHg TR max P.2 mmHg Left Ventricle The left ventricle is normal in size. There is normal left ventricular wall thickness. The left ventricular ejection fraction is within normal limits. LV EF is > than 65%. Doppler measurements suggest impaired left ventricular relaxation, which is associated with grade I/IV or mild diastolic dysfunction. The left ventricular wall motion is normal. There is no thrombus. Cannot assess ASD,VSD or PFO. Right Ventricle The right ventricle is moderately dilated. The right ventricle is not well visualized secondary to technical limitations. There is mild right ventricular hypertrophy. The right ventricular systolic function is mildly reduced. Atria The right atrium is mild to moderately dilated. The left atrial size is normal. Mitral Valve There is no evidence of mitral valve prolapse. There is no vegetation seen on the mitral valve. There is no mitral valve stenosis. There is no mitral regurgitation noted. Aortic Valve There is no aortic valvular vegetation. There is no aortic valve stenosis. There is no LVOT obstruction. No aortic regurgitation is present. Tricuspid Valve There is no tricuspid stenosis. There is a mild amount of tricuspid regurgitation. There is mild pulmonary hypertension by echo. RVSP is 32 to 37 mm of Hg , with RA mean of 5 to 10. Pulmonic Valve There is no pulmonic valvular stenosis. There is a trace amount of pulmonic regurgitation. Great Vessels The aortic root is normal size. The inferior vena cava appeared normal and decreased > 50% with respiration (RAP 5-10 mmHg). Effusions There is no pericardial effusion. : MONI NORRIS > Moni Norris
== END ==
LOC: SP 13:13
PROVIDERS: ATTEND Specialist
DX: R06.02 Shortness of breath (principal)
CPT/HCPCS: 93306

== ENCOUNTER → 2018-09-01 | Outpatient (CLI) | payer MEDICARE, OTHER ==
--- NOTE | 2018-09-01 13:14 | WOMENS IMAGING REPORT ---
EXAM DESCRIPTION: 3D SCREENING MAMMO BILAT COMPLETED DATE/TIME: 09/01/2018 10:32 am REASON FOR STUDY: Z12.31 ROUTINE 3D BILATERAL SCREENING Z12.31 ENCNTR SCREEN MAMMOGRAM FOR MALIGNAN T NEOPLASM OF LORE COMPARISON: 05/12/2017 and 10/30/2010. EXAM PARAMETERS: Standard craniocaudal and mediolateral oblique views of each breast recorded using digital acquisition and breast tomosynthesis. Read with the assistance of CAD. .[facility] - [employer] Version 9.2 LIMITATIONS: None. FINDINGS: Findings present which are benign by mammographic criteria. No suspicious masses, calcific ations or architectural distortion. Pertinent benign findings: Stable asymmetry in the right breast. Benign mammographic findings may include one or more of the following: Smooth masses, popcorn/rim/coa rse calcifications, asymmetries, post-procedure changes, and lesions with long-standing stability. IMPRESSION: Assessment: BENIGN MAMMOGRAPHIC FINDINGS. BIRADS 2 BREAST DENSITY: b. There are scattered areas of fibroglandular density. BIRAD: 2 BENIGN FINDING(S) RECOMMENDATION: ROUTINE SCREENING COMMENT: The patient has been notified of the results by letter per [place] requirements. Additional no tification policies are in place for contacting patient with suspicious or incomplete findings. Quality ID #[id number]: The [employer] recommends an annual screening mammogram for women aged 40 years or over. This facility utilizes a reminder system to ensure that all patients receive reminder letters, and/or direct phone calls for appointments. This includes reminders for routine scr eening mammograms, diagnostic mammograms, or other Breast Imaging Interventions when appropriate. Th is patient will be placed in the appropriate reminder system. TECHNICAL DOCUMENTATION: FINDING NUMBER: (1) ASSESSMENT: (1) JOB ID: [id number] [employer]- All Rights Reserved Reading location - IP/workstation name: [email or web address]-RR
== END ==
LOC: WI 09:55
PROVIDERS: ATTEND Internal Medicine
DX: Z12.31 Encounter for screening mammogram for malignant neoplasm of breast (principal)
CPT/HCPCS: 77063; 77067

== ENCOUNTER 2019-04-09 11:35 | Emergency (ER) | payer MEDICARE ==
--- NOTE | 2019-04-09 13:05 | ER Document Report ---
ED Medical Screen (RME) - General Stated Complaint: LOW POTASSIUM/DIZZY Time Seen by Provider: 04/09/19 13:01 Primary Care Provider: ETTA ARZATE MD [Primary Care Provider] - Follow up as needed TRAVEL OUTSIDE OF THE [place] IN LAST 30 DAYS: No - HPI Notes: 04/09/19 13:04 Patient is an 78-year-old female with a history of hypertension and diabetes who presents complaining of low potassium around 2.8. Patient states that she was drawn by her family doctor yesterday and was called today to come here for evaluation. Patient does have some dizziness, but is otherwise feeling well. She is able to eat and drink without difficulty. She is urinating normally. Denies drug allergies. No recent illness otherwise. Denies fever, chest pain, shortness of breath, abdominal pain, nausea/vomiting/diarrhea. I have treated and performed a rapid initial assessment of this patient. A comprehensive ED assessment and evaluation of the patient, analysis of test results and completion of medical decision making process will be conducted by additional ED providers. PHYSICAL EXAMINATION: GENERAL: Well-appearing, well-nourished and in no acute distress. A&Ox4. Answers questions appropriately. - Related Data Allergies/Adverse Reactions: No Known Allergies Allergy (Verified 04/09/19 13:01) Home Medications: Diabetes med Past Medical History - Social History Chew tobacco use (# tins/day): No Drug Abuse: None - Past Medical History Cardiac Medical History: Reports: Hx Hypertension - CONTROLLED Pulmonary Medical History: Reports: Hx Asthma Renal/ Medical History: Denies: Hx Peritoneal Dialysis GI Medical History: Reports: Hx Ulcer - HX OF. Denies: Hx Hepatitis Infectious Medical History: Denies: Hx Hepatitis Past Surgical History: Reports: Hx Hysterectomy, Hx Tubal Ligation. Denies: Hx Mastectomy, Hx Open Heart Surgery, Hx Pacemaker - Immunizations Hx Diphtheria, Pertussis, Tetanus Vaccination: Yes Physical Exam - Vital signs Vitals: Temp Pulse Resp BP Pulse Ox 97.5 F 94 16 187/92 H 93 04/09/19 12:06 04/09/19 12:06 04/09/19 12:06 04/09/19 12:06 04/09/19 12:06 Course - Vital Signs Vital signs: Temp Pulse Resp BP Pulse Ox 97.5 F 94 16 187/92 H 93 04/09/19 12:06 04/09/19 12:06 04/09/19 12:06 04/09/19 12:06 04/09/19 12:06 Doctor's Discharge - Discharge Referrals: ETTA ARZATE MD [Primary Care Provider] - Follow up as needed
[2019-04-09 13:42] LABS: ABSOLUTE BASOPHILS # (AUTO) 0.1 10^3/uL (0.0-0.2); ABSOLUTE LYMPHOCYTES (AUTO) 1.7 10^3/uL (0.5-4.7); ABSOLUTE MONOCYTES (AUTO) 0.4 10^3/uL (0.1-1.4); ABSOLUTE NEUT (AUTO) 4.2 10^3/uL (1.7-8.2); BASOPHILS % (AUTO) 0.9 % (0-2); EOSINOPHILS % (AUTO) 0.7 % (0-6); HEMATOCRIT 43.3 % (36.0-47.0); HEMOGLOBIN 14.3 g/dL (12.0-15.5); LYMPHOCYTES % (AUTO) 25.8 % (13-45); MEAN CORPUSCULAR HEMOGLOBIN 29.4 pg (27.0-33.4); MEAN CORPUSCULAR HGB CONC 33.1 g/dL (32.0-36.0); MEAN CORPUSCULAR VOLUME 89 fl (80-97); MONOCYTES % (AUTO) 6.6 % (3-13); PLATELET COUNT 191 10^3/uL (150-450); RED BLOOD COUNT 4.88 10^6/uL (3.72-5.28); RED CELL DISTRIBUTION WIDTH 13.2 % (11.5-14.0); TOTAL CELLS COUNTED % (AUTO) 100 %; WHITE BLOOD COUNT 6.4 10^3/uL (4.0-10.5)
[2019-04-09 14:01] LABS: ALBUMIN 4.1 g/dL (3.5-5.0); ALKALINE PHOSPHATASE 84 U/L (38-126); ANION GAP 10 (5-19); ASPARTATE AMINO TRANSFERASE 22 U/L (14-36); BILIRUBIN,DIRECT 0.2 mg/dL (0.0-0.4); BILIRUBIN,TOTAL 0.6 mg/dL (0.2-1.3); BLOOD UREA NITROGEN 9 mg/dL (7-20); CALCIUM 9.5 mg/dL (8.4-10.2); CARBON DIOXIDE 37 mmol/L (22-30); CHLORIDE 91 mmol/L (98-107); GLUCOSE 272 mg/dL (75-110); TOTAL PROTEIN 7.3 g/dL (6.3-8.2)
[2019-04-09 14:03] LABS: POTASSIUM 2.9 mmol/L (3.6-5.0)
[2019-04-09] MEDS ORDERED: POTASSIUM CHLORIDE 10 MEQ TABLET.ER PO ONE (14:12)
[2019-04-09] MEDS ORDERED: POTASSI CL 20 MEQ/50 ML RIDER 20 MEQ/50 ML RTUPB IV ONE (14:12)
[2019-04-09] MEDS ORDERED: POTASSIUM CHLORIDE 20 MEQ PACKET PO ONE (15:23)
[2019-04-09 16:00] LABS: APPEARANCE,URINE SLIGHTLY-CLOUDY; BILIRUBIN,URINE NEGATIVE (NEGATIVE); COLOR,URINE YELLOW; GLUCOSE, URINE >=500 mg/dL (NEGATIVE); KETONES,URINE NEGATIVE (NEGATIVE); LEUKOCYTE ESTERASE,URINE NEGATIVE (NEGATIVE); NITRITE,URINE NEGATIVE (NEGATIVE); PROTEIN,URINE 30 mg/dL (NEGATIVE); URINE SPECIFIC GRAVITY 1.012; UROBILINOGEN,URINE NEGATIVE mg/dL (<2.0)
--- NOTE | 2019-04-09 16:31 | ER Document Report ---
ED General - General Chief Complaint: Abnormal Lab Results Stated Complaint: LOW POTASSIUM/DIZZY Time Seen by Provider: 04/09/19 13:01 Primary Care Provider: ETTA ARZATE MD [Primary Care Provider] - Follow up in 3-5 days Notes: 78-year-old female presents for low potassium. Patient had labs drawn by PCP yesterday and was told that her potassium was 2.8 today and was told to come to the ER for infusion. Patient states she feels a little dizzy but otherwise has no complaints. Patient states she has had low potassium in the past and is supposed to be taking potassium pills however these are too large and she feels as though they get "stuck in her throat." Patient denies any chest pain, shortness of breath, nausea/vomiting/diarrhea, constipation, abdominal pain, fever, chills. TRAVEL OUTSIDE OF THE [place] IN LAST 30 DAYS: No - Related Data Allergies/Adverse Reactions: No Known Allergies Allergy (Verified 04/09/19 13:01) Home Medications: Diabetes med Past Medical History - Social History Smoking Status: Never Smoker Chew tobacco use (# tins/day): No Drug Abuse: None Family History: Reviewed & Not Pertinent Patient has suicidal ideation: No Patient has homicidal ideation: No - Past Medical History Cardiac Medical History: Reports: Hx Hypertension - CONTROLLED Pulmonary Medical History: Reports: Hx Asthma Endocrine Medical History: Reports: Hx Diabetes Mellitus Type 2 Renal/ Medical History: Denies: Hx Peritoneal Dialysis GI Medical History: Reports: Hx Ulcer - HX OF. Denies: Hx Hepatitis Infectious Medical History: Denies: Hx Hepatitis Past Surgical History: Reports: Hx Hysterectomy, Hx Tubal Ligation. Denies: Hx Mastectomy, Hx Open Heart Surgery, Hx Pacemaker - Immunizations Hx Diphtheria, Pertussis, Tetanus Vaccination: Yes Review of Systems - Review of Systems Notes: Constitutional: Negative for fever. HENT: Negative for sore throat. Eyes: Negative for visual changes. Cardiovascular: Negative for chest pain. Respiratory: Negative for shortness of breath. Gastrointestinal: Negative for abdominal pain, vomiting or diarrhea. Genitourinary: Negative for dysuria. Musculoskeletal: Negative for back pain. Skin: Negative for rash. Neurological: Positive for dizziness. Negative for headaches, weakness or numbness. 10 point ROS negative except as marked above and in HPI. Physical Exam - Vital signs Vitals: Temp Pulse Resp BP Pulse Ox 97.5 F 94 16 187/92 H 93 04/09/19 12:06 04/09/19 12:06 04/09/19 12:06 04/09/19 12:06 04/09/19 12:06 - Notes Notes: GENERAL: Well-appearing, well-nourished and in no acute distress. HEAD: Atraumatic, normocephalic. EYES: Extraocular movements intact, sclera anicteric, conjunctiva are normal. NECK: Normal range of motion, supple without lymphadenopathy or JVD. LUNGS: Breath sounds clear to auscultation bilaterally and equal. No wheezes rales or rhonchi. HEART: Regular rate and rhythm without murmurs, rubs or gallops. EXTREMITIES: Normal range of motion, no pitting or edema. No clubbing or cyanosis. NEUROLOGICAL: Cranial nerves II through XII grossly intact. Normal speech, normal gait. PSYCH: Normal mood, normal affect. SKIN: Warm, Dry, normal turgor, no rashes or lesions noted. Course - Re-evaluation Re-evalutation: 04/09/19 78-year-old female presents for hypokalemia. Patient had blood drawn at her PCP yesterday and was told that her potassium was 2.8 today and was told to come to ER. Patient's only complaint is mild dizziness but otherwise patient has no other complaints. Lungs clear to auscultation bilaterally. Regular rate and rhythm. Neuro grossly intact. PE is otherwise unremarkable. Patient's lab work shows a potassium of 2.9 and a magnesium of 1.7. Lab work is otherwise unremarkable. Patient to be given 60 meq of potassium by mouth and 20 meq of potassium by IV. 04/09/19 17:55 patient received potassium. Patient has no complaints at this time. Strict return precautions given. Patient given close follow-up with PCP. Patient voices understanding and agrees with plan of care. - Vital Signs Vital signs: Temp Pulse Resp BP Pulse Ox 97.5 F 94 16 187/92 H 93 04/09/19 12:06 04/09/19 12:06 04/09/19 12:06 04/09/19 12:06 04/09/19 12:06 - Laboratory Result Diagrams: 04/09/19 13:20 04/09/19 13:20 Laboratory results interpreted by me: 04/09/19 04/09/19 13:20 15:44 Potassium 2.9 L* Chloride 91 L Carbon Dioxide 37 H Glucose 272 H Urine Protein 30 H Urine Glucose (UA) >=500 H Discharge - Discharge Clinical Impression: Hypokalemia Condition: Stable Disposition: HOME, SELF-CARE Instructions: Hypokalemia ([facility]) Additional Instructions: We replenished your potassium here in the ER today. Rest of your lab work was reassuring. Please follow-up with your primary care doctor in 3 to 5 days. Return to ER for any worsening symptoms, including chest pain, shortness of breath, fever, nausea/vomiting, dizziness, diarrhea, abdominal pain, or any other symptoms that are concerning to you. Referrals: ETTA ARZATE MD [Primary Care Provider] - Follow up in 3-5 days
[2019-04-09 18:07] VITALS: BP 144/86
--- NOTE | 2019-04-09 19:27 | EKG REPORT ---
SEVERITY:- ABNORMAL ECG - SINUS RHYTHM RBBB AND LAFB PROBABLE LEFT VENTRICULAR HYPERTROPHY : Confirmed by: Moni Norris MD 09-Apr-2019 19:26:58
== END 2019-04-09 18:10 | disposition home or self-care (01) ==
LOC: ER 11:35
DX: E87.6 Hypokalemia (principal); T50.3X6A Underdosing of electrolytic, caloric and water-balance agents, initial encounter; Z91.128 Patient's intentional underdosing of medication regimen for other reason; Z91.14 Patient's other noncompliance with medication regimen; R42 Dizziness and giddiness; J45.909 Unspecified asthma, uncomplicated; I10 Essential (primary) hypertension; E11.9 Type 2 diabetes mellitus without complications; Z79.899 Other long term (current) drug therapy
CPT/HCPCS: 93005; 99283; 96365; 96366; 36415; 83735; 85025; 80053; 81001; 93010; J3480; J3490

== ENCOUNTER → 2019-10-12 | Outpatient (CLI) | payer MEDICARE, OTHER ==
--- NOTE | 2019-10-12 14:39 | WOMENS IMAGING REPORT ---
EXAM DESCRIPTION: 3D SCREENING MAMMO BILAT IMAGES COMPLETED DATE/TIME: 10/12/2019 1:44 pm REASON FOR STUDY: Z12.31 ENCOUNTER FOR SCREENING MAMMOGRAM FOR MALIGNANT NEOPLASM OF BREAST Z12.31 ENCNTR SCREEN MAMMOGRAM FOR MALIGNANT NEOPLASM OF LORE COMPARISON: 2010. 2018 EXAM PARAMETERS: Standard craniocaudal and mediolateral oblique views of each breast recorded using digital acquisition and breast tomosynthesis. Read with the assistance of CAD. .[facility] - R2 F[employer] Wellness Manager Version 9.2 LIMITATIONS: None. FINDINGS: RIGHT BREAST MASSES: No suspicious masses. CALCIFICATIONS: No new or suspicious calcifications. ARCHITECTURAL DISTORTION: None. ASYMMETRY: Focal asymmetry upper inner quadrant about 4.5 cm deep to the nipple. OTHER: No other significant findings. LEFT BREAST MASSES: No suspicious masses. CALCIFICATIONS: No new or suspicious calcifications. ARCHITECTURAL DISTORTION: None. ASYMMETRY: None noted. OTHER: No other significant findings. IMPRESSION: Focal asymmetry right breast. 0 Incomplete: Needs Additional Imaging Evaluation and/or prior Mammograms for Comparison. BREAST DENSITY: b. There are scattered areas of fibroglandular density. BIRAD: ASSESSMENT: 0 Incomplete: Needs Additional Imaging Evaluation and/or prior Mammograms for C omparison. RECOMMENDATION: RECOMMENDED FOLLOW-UP: Cone compression views and potential ultrasound right breast. The patient will be contacted for additional imaging. COMMENT: The patient has been notified of the results by letter per MQSA requirements. Additional no tification policies are in place for contacting patient with suspicious or incomplete findings. Quality ID #225: The [employer] [place] [place] [employer] recommends an annual screening mammogram for women aged 40 years or over. This facility utilizes a reminder system to ensure that all patients receive reminder letters, and/or direct phone calls for appointments. This includes reminders for routine scr eening mammograms, diagnostic mammograms, or other Breast Imaging Interventions when appropriate. Th is patient will be placed in the appropriate reminder system. TECHNICAL DOCUMENTATION: FINDING NUMBER: (1) ASSESSMENT: (1) JOB ID: [id number] 2010 [employer] All Rights Reserved Reading location - IP/workstation name: [email or web address]
== END ==
LOC: WI 13:05
PROVIDERS: ATTEND Internal Medicine
DX: Z12.31 Encounter for screening mammogram for malignant neoplasm of breast (principal); N64.89 Other specified disorders of breast
CPT/HCPCS: 77063; 77067

== ENCOUNTER → 2019-10-25 | Outpatient (CLI) | payer MEDICARE, OTHER ==
--- NOTE | 2019-10-25 12:42 | WOMENS IMAGING REPORT ---
EXAM DESCRIPTION: RIGHT DIAGNOSTIC MAMMO W/CAD; U/S BREAST UNILAT LIMITED IMAGES COMPLETED DATE/TIME: 10/25/2019 11:19 am; 10/25/2019 12:20 pm REASON FOR STUDY: N63.12 RT FOCAL ASYMMETRY; RT BREAST N63.12 N63.12 UNSPECIFIED LUMP IN THE RIGHT BREAST, UPPER INNER BARI COMPARISON: Multiple since 2018 EXAM PARAMETERS: Cone compression craniocaudal and mediolateral oblique images of the breast recorde d with digital acquisition. Right whole breast 90 mediolateral view. Right breast and axilla ultrasound was also performed. Read with the assistance of CAD. .[facility] - R2 Living Coach Version 9.2 LIMITATIONS: None. FINDINGS: BREAST LATERALITY: Right MASSES: Ill-defined irregular mass in the right breast 12 to 1 o'clock position with architectural di stortion CALCIFICATIONS: No new or suspicious calcifications. ARCHITECTURAL DISTORTION: Associated with ill-defined irregular breast mass right 12 to 1 o'clock pos ition ASYMMETRY: None noted. OTHER: No other significant findings. Right breast ultrasound: Ultrasound of the right breast 12 to 1 o'clock position about 6 cm from the nipple demonstrates ill-d efined hypoechoic 1.8 x 1.7 cm mass with acoustic absorption, taller than wide, with internal color f low highly suspicious for malignancy. Ultrasound-guided core biopsy, post biopsy clip placement and follow-up two-view mammogram recommended. Right axilla ultrasound was performed. No discrete cystic or solid axillary lesions. IMPRESSION: Malignant appearing ill-defined mass 1.8 x 1.7 cm right breast 12 to 1 o'clock position about 6 cm from the nipple. Ultrasound-guided core biopsy, post biopsy clip placement and follow-up two-view mammogram recommended BREAST DENSITY: b. There are scattered areas of fibroglandular density. BIRAD: ASSESSMENT: 5 Highly suggestive of malignancy. Biopsy should be performed in the absence of clinical contra-indication. RECOMMENDATION: RECOMMENDED FOLLOW UP: Right breast ultrasound-guided core biopsy with follow-up imm ediate post procedure two-view mammogram for clip placement SPECIFIC INTERVENTION/IMAGING/CONSULTATION RECOMMENDED:Right breast ultrasound-guided core biopsy wit h follow-up immediate post procedure two-view mammogram for clip placement COMMUNICATION:Patient notified by letter COMMENT: The patient has been notified of the results by letter per MQSA requirements. Additional no tification policies are in place for contacting patient with suspicious or incomplete findings. Quality ID #225: The [employer] recommends an annual screening mammogram for women aged 40 years or over. This facility utilizes a reminder system to ensure that all patients receive reminder letters, and/or direct phone calls for appointments. This includes reminders for routine scr eening mammograms, diagnostic mammograms, or other Breast Imaging Interventions when appropriate. Th is patient will be placed in the appropriate reminder system. TECHNICAL DOCUMENTATION: FINDING NUMBER: (1) ASSESSMENT: (1) JOB ID: [id number] 2010 [employer]- All Rights Reserved Reading location - IP/workstation name: [email or web address]
--- NOTE | 2019-10-25 12:42 | WOMENS IMAGING REPORT ---
EXAM DESCRIPTION: RIGHT DIAGNOSTIC MAMMO W/CAD; U/S BREAST UNILAT LIMITED IMAGES COMPLETED DATE/TIME: 10/25/2019 11:19 am; 10/25/2019 12:20 pm REASON FOR STUDY: N63.12 RT FOCAL ASYMMETRY; RT BREAST N63.12 N63.12 UNSPECIFIED LUMP IN THE RIGHT BREAST, UPPER INNER BARI COMPARISON: Multiple since 2018 EXAM PARAMETERS: Cone compression craniocaudal and mediolateral oblique images of the breast recorde d with digital acquisition. Right whole breast 90 mediolateral view. Right breast and axilla ultrasound was also performed. Read with the assistance of CAD. .COUNTS INCLUDE 234 BEDS AT THE [facility] - R2 [employer] Steamer Operator Version 9.2 LIMITATIONS: None. FINDINGS: BREAST LATERALITY: Right MASSES: Ill-defined irregular mass in the right breast 12 to 1 o'clock position with architectural di stortion CALCIFICATIONS: No new or suspicious calcifications. ARCHITECTURAL DISTORTION: Associated with ill-defined irregular breast mass right 12 to 1 o'clock pos ition ASYMMETRY: None noted. OTHER: No other significant findings. Right breast ultrasound: Ultrasound of the right breast 12 to 1 o'clock position about 6 cm from the nipple demonstrates ill-d efined hypoechoic 1.8 x 1.7 cm mass with acoustic absorption, taller than wide, with internal color f low highly suspicious for malignancy. Ultrasound-guided core biopsy, post biopsy clip placement and follow-up two-view mammogram recommended. Right axilla ultrasound was performed. No discrete cystic or solid axillary lesions. IMPRESSION: Malignant appearing ill-defined mass 1.8 x 1.7 cm right breast 12 to 1 o'clock position about 6 cm from the nipple. Ultrasound-guided core biopsy, post biopsy clip placement and follow-up two-view mammogram recommended BREAST DENSITY: b. There are scattered areas of fibroglandular density. BIRAD: ASSESSMENT: 5 Highly suggestive of malignancy. Biopsy should be performed in the absence of clinical contra-indication. RECOMMENDATION: RECOMMENDED FOLLOW UP: Right breast ultrasound-guided core biopsy with follow-up imm ediate post procedure two-view mammogram for clip placement SPECIFIC INTERVENTION/IMAGING/CONSULTATION RECOMMENDED:Right breast ultrasound-guided core biopsy wit h follow-up immediate post procedure two-view mammogram for clip placement COMMUNICATION:Patient notified by letter COMMENT: The patient has been notified of the results by letter per MQSA requirements. Additional no tification policies are in place for contacting patient with suspicious or incomplete findings. Quality ID #225: The [employer] recommends an annual screening mammogram for women aged 40 years or over. This facility utilizes a reminder system to ensure that all patients receive reminder letters, and/or direct phone calls for appointments. This includes reminders for routine scr eening mammograms, diagnostic mammograms, or other Breast Imaging Interventions when appropriate. Th is patient will be placed in the appropriate reminder system. TECHNICAL DOCUMENTATION: FINDING NUMBER: (1) ASSESSMENT: (1) JOB ID: [id number] 2010 [employer]- All Rights Reserved Reading location - IP/workstation name: [email or web address]
== END ==
LOC: WI 12:29
PROVIDERS: ATTEND Internal Medicine
DX: N63.12 Unspecified lump in the right breast, upper inner quadrant (principal)
CPT/HCPCS: 76642; 77065

== ENCOUNTER 2020-01-19 08:57 | Day surgery (SDC) | payer MEDICARE, OTHER ==
[2020-01-14 12:16] LABS: HEMATOCRIT 38.6 % (36.0-47.0); HEMOGLOBIN 13.1 g/dL (12.0-15.5); MEAN CORPUSCULAR HEMOGLOBIN 30.3 pg (27.0-33.4); MEAN CORPUSCULAR HGB CONC 33.9 g/dL (32.0-36.0); MEAN CORPUSCULAR VOLUME 89 fl (80-97); PLATELET COUNT 198 10^3/uL (150-450); RED BLOOD COUNT 4.34 10^6/uL (3.72-5.28); WHITE BLOOD COUNT 5.5 10^3/uL (4.0-10.5)
--- NOTE | 2020-01-14 12:46 | RADIOLOGY REPORT (SQ) ---
EXAM DESCRIPTION: CHEST PA/LATERAL IMAGES COMPLETED DATE/TIME: 01/14/2020 12:37 pm REASON FOR STUDY: PRE-OP COMPARISON: None. EXAM PARAMETERS: NUMBER OF VIEWS: two views TECHNIQUE: Digital Frontal and Lateral radiographic views of the chest acquired. RADIATION DOSE: NA LIMITATIONS: none FINDINGS: LUNGS AND PLEURA: Linear opacity along the minor fissure likely platelike atelectasis or p leural thickening. No focal consolidation, pleural effusion or pneumothorax. MEDIASTINUM AND HILAR STRUCTURES: No masses or contour abnormalities. HEART AND VASCULAR STRUCTURES: Borderline enlarged cardiac silhouette. Vascular calcifications. No overt edema. BONES: No acute findings. HARDWARE: None in the chest. OTHER: No other significant finding. IMPRESSION: Borderline enlarged cardiac silhouette without other evidence of acute cardiopulmonary p rocess. TECHNICAL DOCUMENTATION: JOB ID: [id number] 2010 [employer]- All Rights Reserved Reading location - IP/workstation name: [email or web address]
[2020-01-14 12:49] LABS: ANION GAP 12 (5-19); BLOOD UREA NITROGEN 16 mg/dL (7-20); CALCIUM 10.8 mg/dL (8.4-10.2); CARBON DIOXIDE 35 mmol/L (22-30); CHLORIDE 94 mmol/L (98-107); GLUCOSE 173 mg/dL (75-110); POTASSIUM 3.8 mmol/L (3.6-5.0)
--- NOTE | 2020-01-14 12:56 | EKG REPORT ---
SEVERITY:- ABNORMAL ECG - SINUS RHYTHM RBBB AND LAFB : Confirmed by: Adan Damon MD 14-Jan-2020 12:55:46
[~2020-01-19 08:57] MED LIST: CEFAZOLIN 1 GM/D5W RTU 1 GM/50 ML RTUPB IV ONE; LIDOCAINE 4% CREAM 5 GM TUBE ONE
[2020-01-19] MEDS ORDERED: METOCLOPRAMIDE HCL INJ/PF 10 MG/2 ML SDV ONE (09:43)
[2020-01-19] MEDS ORDERED: DEXAMETHASONE SOD PHOSPHATE INJ 4 MG/1 ML VIAL ONE (12:00)
[2020-01-19] MEDS ORDERED: FENTANYL CITRATE INJ/PF 100 MCG/2 ML AMPUL ONE (12:00)
[2020-01-19] MEDS ORDERED: EPHEDRINE SULFATE INJ 50 MG/1 ML AMPULE ONE (12:00)
[2020-01-19] MEDS ORDERED: MIDAZOLAM 2 MG/2 ML INJ ONE (12:00)
[2020-01-19] MEDS ORDERED: PROPOFOL INJ 200 MG/20 ML VIAL IV ONE (12:00)
[2020-01-19] MEDS ORDERED: ONDANSETRON HCL INJ/PF 4 MG/2 ML SDV ONE (12:00)
[2020-01-19] MEDS ORDERED: MICROFIBRILLAR COLLAGEN 1 GM PACK ONE (12:54)
[2020-01-19] MEDS ORDERED: LIDOCAINE 1%/EPINEPHRINE INJ 20 ML VIAL ONE (12:55)
[2020-01-19] MEDS ORDERED: METHYLENE BLUE 50 MG/10 ML AMPULE ONE (12:55)
[2020-01-19] MEDS ORDERED: DIPHENHYDRAMINE HCL 50 MG/ML VIAL IV PRN (14:07)
[2020-01-19] MEDS ORDERED: ONDANSETRON HCL INJ/PF 4 MG/2 ML SDV IV PRN (14:07)
[2020-01-19] MEDS ORDERED: PROMETHAZINE HCL INJ 25 MG/1 ML VIAL IV PRN ×2 (14:07)
[2020-01-19] MEDS ORDERED: FENTANYL CITRATE INJ/PF 100 MCG/2 ML AMPUL IV PRN ×3 (14:07)
[2020-01-19] MEDS ORDERED: MEPERIDINE HCL/PF INJ 25 MG/1 ML DISP.SYRIN IV PRN (14:07)
--- NOTE | 2020-01-19 14:41 | Operative Report ---
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 Ultrasound directed right breast lumpectomy. 2. [place] lymph node biopsy right axilla SURGEON: KILEY STILL [employer] COMPENSATION EXAMINER: KIEL ANNA ANESTHESIA: GA TISSUE REMOVED OR ALTERED: Right breast lumpectomy, with a separate anterior superior cavity margin; right axillary sentinel lymph COMPLICATIONS: None ESTIMATED BLOOD LOSS: Scant INTRAOPERATIVE FINDINGS: See below PROCEDURE: The patient was seen in the preop holding area where the right breast was marked. Bedside neoprobe scanning revealed increased activity in the right axilla consistent with successful mapping The patient was taken to the main operating room general anesthesia was induced via LMA. Right arm was abducted, right breast exposed, and right breast injected intradermally at the 10 o'clock position areolar border with 50% diluted methylene blue. Right breast was massaged, then right breast and right axilla prepped and draped sterile fashion. Surgical plan and surgical timeout were conducted. The right breast was scanned with a variable frequency linear transducer, and confirmation made of the target tumor in the superior position 12:00, approximately 6 cm from the nipple. Skin was anesthetized 1% plain lidocaine. A 5 cm incision was made with a #10 blade, and using ultrasound as a guide for the dissection, a lumpectomy specimen approximately 6 x 8 x 6 cm was excised from the right breast. The specimen was removed from the breast, labeled with long suture in the lateral position, short suture in the superior position. The specimen was placed on a Lori dish and imaged with the specimen radiograph machine in the operating room. This revealed the tumor, and retention of the clip. The specimen was then taken personally by Dr. Still to the pathology lab where the specimen was oriented, inked by Dr. Hodgson, and sliced horizontally and determined to contain the tumor in the superior aspect of the lumpectomy specimen with margins grossly determined. However the anterior superior margin was felt to be close so a margin resection was recommended. We went back to the patient and removed a small portion of the anterior superior cavity margin with electrocautery. The specimen was oriented with sutures, a short suture in the superior position, a long suture in the lateral position, and a very long suture on the anterior surface representing the inside of the cavity margin. This was discussed with Dr. Hodgson, pathologist who understood the orientation. We now completed sentinel lymph node biopsy. An area of increased activity was identified in the low axilla. Skin was x1% plain lidocaine. A 3 cm incision made with a #15 blade, and a single sentinel lymph node was excised which was hot, and blue with an in vivo count of 22,768 and an ex vivo count of 33,285. Chronic counts were negligible. Hemostasis was excellent. At this point we felt the operation was complete including the right breast lumpectomy with acquisition of tumor with clip, and right axillary sentinel lymph node biopsy. Sponge and needle counts are correct. Wounds were closed with a 3-0 Vicryl, and skin glue. Patient tolerated the procedure well, extubated, and taken to recovery in stable condition. The physician clinical assistant, Ms. Pate, provided assistance during this case by: Assisting retracting tissue, instillation of local anesthesia and closure of skin incisions.
--- NOTE | 2020-01-19 14:48 | Discharge Summary ---
Discharge Summary (SDC) - Discharge Final Diagnosis: RIGHT BREAST CANCER Date of Surgery: 01/19/20 Discharge Date: 01/19/20 Condition: Good Treatment or Instructions: [facility] [address], [place] [address] Care Instructions Following Your Lumpectomy Activities: Resume normal activities when you feel comfortable. It is best to remain as active as possible to speed your recovery. It is common to experience some fatigue after surgery and you may find that short naps are helpful. Avoid strenuous activity such as weight lifting, tennis, etc at your surgical site for two weeks. Perform gentle arm exercises daily and do not favor your operative arm to due increased risk of mobility issues postoperatively. No driving for 7 days after surgery. Do not drive if you are taking pain medication other than Tylenol or Ibuprofen. No swimming, tub baths or soaking in a hot tub for 4 weeks. There are no dietary restrictions. Do not smoke as this impairs wound healing. Surgical Site care: You may shower 24 hours after surgery to include washing the wound with soap and water using your hands. Do not scrub the incision. Pat the area dry with a towel. Leave skin glue intact. You do not need to recover the wound although some patients find that they feel more comfortable using a light dressing for a few days to absorb any minimal drainage which may occur. If you use a dressing in this manner change it at least every day. Do not use heating pad or apply an ice pack to the operative site. You may apply deodorant if you are careful to avoid getting it on the wound itself. Medications: Take Ulram, one to tablets every six hours as needed for breakthrough pain. Do not take over the counter Tylenol if you are taking either Tylenol #3 or Percocet. Again, you cannot drive while taking narcotic pain medication. Resume all of your normal prescription medications after your surgery unless instructed otherwise. Do not take additional narcotic medications with Ultram. You may experience constipation after surgery while taking pain medications. If using a narcotic on a regular basis, take a stool softener such as Colace twice a day. It is helpful to stay hydrated by drinking lots of fluids. Walking is also helpful and is good exercise after surgery. If you need extra help, use Milk of Magnesia according to the directions on the package. Follow-up: Call our office at to make a follow-up appointment in 10-14 days. Your doctor will call to discuss the pathology report with you as soon as it is available. Concerns: If you had a sentinel lymph node biopsy with your mastectomy, your urine may have a greenish discoloration. This is normal and will resolve as the blue dye slowly leaves your system. If you notice significant leakage around the drains, this is not normal. The drains may be clogged. Please call our office to come in immediately for the drains to be checked. Some bruising may occur and will go away over time. If you have a fever of 101.5 or greater, chills, redness at the incision site, excessive drainage from your wound or severe pain not relieved by pain medication, call your doctor. A physician is available 24 hours a day 7 days a week in addition to regular office hours. If problems arise after normal office hours please call the hospital at . Please call if you have any questions or concerns. Prescriptions: Tramadol HCl [Ultram 50 mg Tablet] 50 mg PO Q6HP PRN #20 tab PRN Reason: Referrals: ETTA ARZATE MD [Primary Care Provider] - Discharge Activity: No Lifting Over 10 Pounds, No Lifting/Push/Pulling, Walk Frequently Report the Following to Your Physician Immediately: Increase in Pain, Fever over 101 Degrees, Unusual Bleeding, Redness, Swelling, Warmth, Increased Soreness, Drainage-Foul Smelling
--- NOTE | 2020-01-19 17:02 | RADIOLOGY REPORT (SQ) ---
EXAM DESCRIPTION: NM LYMPHATICS/LYMPH GLANDS IMAGES COMPLETED DATE/TIME: 01/19/2020 12:20 pm REASON FOR STUDY: RT BREAST CANCER C50.911 MALIGNANT NEOPLASM OF UNSP SITE OF RIGHT FEMALE TAI COMPARISON: None. RADIONUCLIDE AND DOSE: 584 microcuries TC-99m tilmanocept - [employer]. The route of agent administration: Subcutaneous in the skin. TECHNIQUE: The skin of the right breast was prepped in sterile fashion. The radiopharmaceutical was administered in equally divided doses in the periareolar breast. LIMITATIONS: None. FINDINGS: Images demonstrate activity at the injection site with migration to a sentinel lymph node. IMPRESSION: ADMINISTRATION OF RADIOPHARMACEUTICAL FOR SENTINEL LYMPH NODE EVALUATION. TECHNICAL DOCUMENTATION: JOB ID: [id number] 2010 [employer]- All Rights Reserved Reading location - IP/workstation name: [email or web address]
--- NOTE | 2020-01-19 17:05 | RADIOLOGY REPORT (SQ) ---
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 TECHNIQUE: Specimen radiograph from breast procedure performed in the operating room. LIMITATIONS: None. FINDINGS: Specimen radiograph from breast procedure performed in the operating room. 2 images are o btained, demonstrating a biopsy marker within the specimen. Please see procedure note for details and final pathology. IMPRESSION: Specimen radiographs demonstrating biopsy marker. TECHNICAL DOCUMENTATION: JOB ID: [id number] Reading location - IP/workstation name: [facility]
[2020-01-19 17:56] VITALS: BP 114/51
== END 2020-01-19 16:43 | disposition home or self-care (01) ==
LOC: OROUT 08:57 → EDBD 13:30 → OROUT 16:43
PROVIDERS: ATTEND Surgery
DX: D05.11 Intraductal carcinoma in situ of right breast (principal); Z03.818 Encounter for observation for suspected exposure to other biological agents ruled out; E11.9 Type 2 diabetes mellitus without complications; I10 Essential (primary) hypertension; J45.909 Unspecified asthma, uncomplicated; R53.83 Other fatigue; E78.00 Pure hypercholesterolemia, unspecified; Z79.84 Long term (current) use of oral hypoglycemic drugs; Z79.899 Other long term (current) drug therapy; Z79.82 Long term (current) use of aspirin
CPT/HCPCS: 93005; 36415 ×2; 82962; 84132; 85027; 80048; 88342 ×2; 88341 ×2; 88305 ×2; 88307 ×2; 71046; 78195; 93010; 01610; 76098; 19301; 38500; U0003; A9520; J2250; J0690; J1100; J3490 ×4; J3010; J2765; J2405; J2704; Q9968; C9803; 1610; 87635